=== PATIENT | female | born 1955 | race Caucasian/White ===

== ENCOUNTER → 2025-06-27 15:03 | Outpatient (BNVA) | payer MEDICARE, MEDICAID, SELFPAY | PROVIDERS: PCP Nurse Practitioner Family; Visit Provider Nurse Practitioner Family | DX: E11.9 Type 2 diabetes mellitus without complications (principal); Z87.09 Personal history of other diseases of the respiratory system | CPT/HCPCS: 80053; 80061; 83036; 84443; 85025 ==